=== PATIENT | male | born 1960 | race Caucasian/White ===

== ENCOUNTER 2021-09-28 12:13 | Emergency (ER) | payer OTHER ==
[2021-09-28] MEDS ORDERED: PREDNISONE 20MG20 MG PO (16:46)
[2021-09-28] MEDS ORDERED: AMOX TR-K CLV1 EAC4 PO (16:46)
[2021-09-28] MEDS ORDERED: PROVENTIL HFA6.7 GM INH (16:46)
[2021-09-28] MEDS ORDERED: COMBIVENT RESPIM4 GM INH (16:46)
[2021-09-28] MEDS ORDERED: MUCINEX D TABL1 EACH PO (16:46)
== END 2021-09-28 17:22 | disposition home or self-care (01) ==
LOC: FER 12:13
DX: J44.1 Chronic obstructive pulmonary disease with (acute) exacerbation (principal); F17.210 Nicotine dependence, cigarettes, uncomplicated; Z20.822 Contact with and (suspected) exposure to COVID-19
CPT/HCPCS: 71046; U0002